=== PATIENT | male | born 1980 | race African-American/Black ===

== ENCOUNTER 2018-08-30 20:30 | Emergency (ER) | payer BC ==
[~2018-08-30] VITALS: Ht 182.9 cm; Wt 81.6 kg
[2018-08-30 20:50] VITALS: BP 153/87
[2018-08-30] MEDS ORDERED: Tetanus/Diptheria/Pertussis Vaccine 0.5ml Syr IM ONE ×2 (21:50→22:00)
--- NOTE | 2018-08-30 21:52 | Emergency Room Report ---
History of Present Illness General Chief Complaint: Laceration Source: Patient Present Illness HPI Mr. Burgos is a pleasant healthy 37-year-old right-handed male who cut his left index finger with shard of glass while washing dishes. He has mild pain. Bleeding was controlled pressure. Unknown tetanus status. Able to bend finger. Intact sensation. 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 Reviewed Nursing Documentation: PMH: Agreed; PSxH: Agreed Nursing Documentation-PMH Past Medical History: No Stated History Review of Systems Constitutional: Denies: fever, malaise Neurological: Denies: numbness, paresthesia Physical Exam Vital Signs Date Time Temp Pulse Resp B/P (MAP) Pulse Ox O2 Delivery O2 Flow Rate FiO2 08/30/18 20:38 98.2 77 16 153/87 97 Room Air Sp02 EP Interpretation: reviewed, normal General Appearance: normal inspection, well appearing, no apparent distress, alert, GCS 15, non-toxic Head: normocephalic, atraumatic Eyes: bilateral eye normal inspection ENT: normal pharynx, moist mucus membranes Other Organ Systems left index finger, 1 cm v shaped flap laceration distal phalanx, able to flex at DIP and PIP Procedures Laceration/Wound Repair Laceration/Wound Repair : Consent: Verbal Wound Location: upper extremity Wound's Depth, Shape: superficial Wound Explored: no foreign body removed Betadine Prep?: No Wound Repaired With: Dermabond Complications: Other - bleeding difficult to contol initially, dermabond applied, with xeroform Medical Decision Making Diagnostic Impression: Primary Impression: Finger laceration ER Course dermabond repair of superficial distal laceration of left index finger, xeroform gauze applied with finger splint finger splint place under my supervision, normal alignment, neurologically intact after placement Last Vital Signs Date Time Temp Pulse Resp B/P (MAP) Pulse Ox O2 Delivery O2 Flow Rate FiO2 08/30/18 20:38 98.2 77 16 153/87 97 Room Air Status: improved Disposition: HOME, SELF-CARE Condition: Stable Stefania Burgos MD Aug 30, 2018 21:52
[2018-08-30 22:09] VITALS: BP 145/85
== END 2018-08-30 22:15 | disposition home or self-care (01) ==
LOC: EMR 22:12
DX: S61.211A Laceration without foreign body of left index finger without damage to nail, initial encounter (principal); W25.XXXA Contact with sharp glass, initial encounter; Y93.G1 Activity, food preparation and clean up; Y92.9 Unspecified place or not applicable; Z23 Encounter for immunization
CPT/HCPCS: 90471; 90715; 99283